=== PATIENT | female | born 1985 | race Caucasian/White ===

== ENCOUNTER 2019-05-17 21:31 | Emergency (ER) | payer OTHER ==
[2019-05-17] MEDS ORDERED: predniSONE 50 MG TAB PO STA (22:28)
[2019-05-17] MEDS ORDERED: IPRATROPIUM-ALBUTEROL 3 ML NEB INHALATION STA (22:28)
--- NOTE | 2019-05-17 22:34 | XR ---
EXAMINATION TYPE: XR chest 2V DATE OF EXAM: 05/17/2019 COMPARISON: NONE HISTORY: Hemoptysis TECHNIQUE: Frontal and lateral views of the chest are obtained. FINDINGS: There is some linear density at the right diaphragm. There is no heart failure. Heart size is normal. There is mild widening of the mediastinum. Costophrenic angles are clear. Bony thorax appears intact. IMPRESSION: There is some widening of the mediastinum. Mediastinal adenopathy is suspected. Follow-u p recommended. Minimal atelectasis right lung base.
[2019-05-17] MEDS ORDERED: ACETAMINOPHEN TAB 325 MG TAB PO STA (23:10)
[2019-05-17] MEDS ORDERED: IBUPROFEN 600 MG TAB PO STA (23:10)
[2019-05-17 23:14] LABS: Appearance,Urine Clear (Clear); Bilirubin,Urine Negative (Negative); Blood,Urine Large (Negative); Color,Urine Yellow; Glucose,Urine (UA) Negative (Negative); Ketones,Urine Negative (Negative); Leukocyte Esterase,Urine Small (Negative); Mucus,Urine Rare /hpf; Nitrite,Urine Negative (Negative); Protein,Urine Negative (Negative); RBC,Urine 119 /hpf (0-5); Specific Gravity,Urine 1.011 (1.001-1.035); Squamous Epithelial Cell,Urine 1 /hpf (0-4); Urobilinogen,Urine <2.0 mg/dL (<2.0); WBC,Urine 8 /hpf (0-5)
[2019-05-17] MEDS ORDERED: SODIUM CHLORIDE 0.9% 500 ML 500 ML IV STA (23:27)
[2019-05-18 00:10] LABS: Basophils # (A) 0.1 k/uL (0-0.2); Basophils % (A) 0 %; Eosinophils # (A) 0.2 k/uL (0-0.7); Eosinophils % (A) 1 %; HGB 13.3 gm/dL (11.4-16.0); Lymphocytes # (A) 2.4 k/uL (1.0-4.8); Lymphocytes % (A) 12 %; MCH 29.3 pg (25.0-35.0); MCHC 34.1 g/dL (31.0-37.0); Mean Platelet Volume 5.7; Monocytes % (A) 5 %; Neutrophils # (A) 15.2 k/uL (1.3-7.7); Neutrophils % (A) 79 %; Platelet Count 314 k/uL (150-450); RBC 4.53 m/uL (3.80-5.40); RDW 14.1 % (11.5-15.5); WBC 19.3 k/uL (3.8-10.6)
--- NOTE | 2019-05-18 00:15 | ED ---
General Adult HPI - General Chief complaint: Upper Respiratory Infection Stated complaint: Bloody Sputum Time Seen by Provider: 05/17/19 21:55 Source: patient, RN notes reviewed, old records reviewed Mode of arrival: ambulatory Limitations: no limitations - History of Present Illness Initial comments: 33-year-old female patient with the chief complaint of cough, hematemesis. Patient was that she has had persistent cough for approximately 2 weeks. Repor ts that she had asthma and feels that her asthma is worsening. Patient port sites that she was coughing, after which she threw up, which had streaks of bright red blood in it. Patient was seen in urgent care prior today and reportedly said the coughing of blood was one of the concerning symptoms for 2 to go to the emergency department. Patient is fully vaccinated. Denies any other complaints at this time. Systemic: Pt denies fatigue, fever/chills, rash. Pt denies weakness, night sweats, weight loss. Neuro: Pt denies headache, visual disturbances, syncope or pre-syncope. HEENT: Pt denies ocular discharge or irritation, otalgia, rhinorrhea, pharyngitis or notable lymphadenopathy. Cardiopulmonary: Pt denies heart palpitations, dyspnea on exertion. Abdominal/GI: Pt denies abdominal pain, n/v/d. : Pt denies dysuria, burning w/ urination, frequency/urgency. Denies new onset urinary or bowel incontinence. MSK: Pt denies myalgia, loss of strength or function in extremities. Neuro: Pt denies new onset weakness, paresthesias. - Related Data Previous Rx's Medication Instructions Recorded Albuterol Inhaler [Ventolin Hfa 1 - 2 puff INHALATION Q4-6H PRN #1 05/18/19 Inhaler] inhaler Albuterol Nebulized [Ventolin 2.5 mg INHALATION Q4H PRN 10 Days 05/18/19 Nebulized] nebu predniSONE 50 mg PO DAILY #4 tab 05/18/19 Allergies Allergy/AdvReac Type Severity Reaction Status Date / Time bee venom protein (honey bee) Allergy Anaphylaxis Verified 05/17/19 21:53 duloxetine [From Cymbalta] Allergy Unknown Verified 05/17/19 21:53 egg Allergy Nausea & Verified 05/17/19 21:53 Vomiting Fish Containing Products Allergy Nausea & Verified 05/17/19 21:53 [Fish] Vomiting mushroom Allergy Nausea & Verified 05/17/19 21:53 Vomiting paliperidone [From Invega] Allergy Unknown Verified 05/17/19 21:53 shellfish derived Allergy Anaphylaxis Verified 05/17/19 21:53 Review of Systems ROS Statement: Those systems with pertinent positive or pertinent negative responses have been documented in the HPI. ROS Other: All systems not noted in ROS Statement are negative. Past Medical History Past Medical History: Asthma, Diabetes Mellitus, Hypertension Additional Past Medical History / Comment(s): legally blind, neuropathy trouble walking History of Any Multi-Drug Resistant Organisms: None Reported Past Surgical History: Adenoidectomy, Ear Surgery Additional Past Surgical History / Comment(s): D and C Past Psychological History: Anxiety, Bipolar, Depression, PTSD Smoking Status: Never smoker Past Alcohol Use History: None Reported Past Drug Use History: None Reported General Exam - General Exam Comments Initial Comments: Constitutional: NAD, AOX3, Pt has pleasant affect. HEENT: NC/AT, trachea midline, neck supple, no lymphadenopathy. Posterior pharynx non erythematous, without exudates. External ears appear normal, without discharge. Mucous membranes moist. Eyes PERRLA, EOM intact. There is no scleral icterus. No pallor noted. Cardiopulmonary: RRR, no murmurs, rubs or gallops, no JVD noted. wheezing noted in anterior lung doyle, resolved after breathing treatment. No peripheral edema. Abdominal exam: Abdomen soft and non-distended. Abdomen non-tender to palpation in all 4 quadrants. Bowel sounds active in LLQ. No hepatosplenomegaly. No ecchymosis Neuro: CN II-XII grossly intact. No nuchal rigidity. No raccon eyes, no lazaro sign, no hemotympanum. No cervical spinal tenderness. MSK: No posterior calf tenderness bilaterally, homans sign negative bilaterally. Posterior tibialis and radial pulse +2 bilaterally. Sensation intact in upper and lower extremities. Full active ROM in upper and lower extremities, 5/5 stregnth. Limitations: no limitations Course Vital Signs 05/17/19 05/17/19 05/17/19 21:45 22:27 22:58 Temperature 100.1 F H 101.9 F H Pulse Rate 109 H 72 Respiratory 20 22 Rate Blood Pressure 118/64 O2 Sat by Pulse 96 Oximetry 05/17/19 05/18/19 23:22 00:41 Temperature 100.8 F H Pulse Rate 72 102 H Respiratory 18 Rate Blood Pressure 107/50 O2 Sat by Pulse 95 Oximetry Medical Decision Making - Medical Decision Making 33-year-old female patient from [place] complaining of cough, one episode of posttussive hematemesis. Pt has a his history of asthma. Patient's vital signs displayed mild tachycardia, mild fever. Pt administered antipyretic. Physical exam displayed diffuse wheezing in anterior lung doyle. Improved significantly after breathing treatment. After breathing treatment patient complaining of some transient, bilateral parasternal pain. Was reproducible upon palpation. Further investigations were performed including EKG which displayed sinus tachycardia at 120 bpm, likely secondary to beta 1 agonist albuterol. Lab oratory investigations revealed leukocytosis of 19.3. CMP non-impressive. Troponin negative. UA displayed 119 she is currently on some menses. Influenza is negative. Chest x-ray revealed widening mediastinum, mediastinal adenopathy is suspected, follow-up recommended. Patient chest pain resolved spontaneously. Patient likely experiencing bronchitis/asthma exacerbation. Patient will be discharged on oral steroids. Patient is a breathing treatment at home, refill was prescribed. Patient will discharge with close outpatient follow-up with primary care provider tomorrow. Case discussed with Dr. Godinez. - Lab Data Result diagrams: 05/18/19 00:06 05/18/19 00:06 Lab Results 05/17/19 05/17/19 05/18/19 Range/Units 22:40 22:50 00:06 WBC 19.3 H (3.8-10.6) k/uL RBC 4.53 (3.80-5.40) m/uL Hgb 13.3 (11.4-16.0) gm/dL Hct 39.0 (34.0-46.0) % MCV 86.0 (80.0-100.0) fL MCH 29.3 (25.0-35.0) pg MCHC 34.1 (31.0-37.0) g/dL RDW 14.1 (11.5-15.5) % Plt Count 314 (150-450) k/uL Neutrophils % 79 % Lymphocytes % 12 % Monocytes % 5 % Eosinophils % 1 % Basophils % 0 % Neutrophils # 15.2 H (1.3-7.7) k/uL Lymphocytes # 2.4 (1.0-4.8) k/uL Monocytes # 1.0 (0-1.0) k/uL Eosinophils # 0.2 (0-0.7) k/uL Basophils # 0.1 (0-0.2) k/uL Sodium (137-145) mmol/L Potassium (3.5-5.1) mmol/L Chloride (98-107) mmol/L Carbon Dioxide (22-30) mmol/L Anion Gap mmol/L BUN (7-17) mg/dL Creatinine (0.52-1.04) mg/dL Est GFR (CKD-EPI)AfAm (>60 ml/min/1.73 sqM) Est GFR (CKD-EPI)NonAf (>60 ml/min/1.73 sqM) Glucose (74-99) mg/dL Calcium (8.4-10.2) mg/dL Magnesium (1.6-2.3) mg/dL Total Bilirubin (0.2-1.3) mg/dL AST (14-36) U/L ALT (9-52) U/L Alkaline Phosphatase (38-126) U/L Troponin I (0.000-0.034) ng/mL Total Protein (6.3-8.2) g/dL Albumin (3.5-5.0) g/dL Urine Color Yellow Urine Appearance Clear (Clear) Urine pH 6.0 (5.0-8.0) Ur Specific [place] 1.011 (1.001-1.035) Urine Protein Negative (Negative) Urine Glucose (UA) Negative (Negative) Urine Ketones Negative (Negative) Urine Blood Large H (Negative) Urine Nitrite Negative (Negative) Urine Bilirubin Negative (Negative) Urine Urobilinogen <2.0 (<2.0) mg/dL Ur Leukocyte Esterase Small H (Negative) Urine RBC 119 H (0-5) /hpf Urine WBC 8 H (0-5) /hpf Ur Squamous Epith Cells 1 (0-4) /hpf Urine Mucus Rare H (None) /hpf Influenza Type A RNA Not Detected (Not Detectd) Influenza Type B (PCR) Not Detected (Not Detectd) 05/18/19 05/18/19 Range/Units 00:06 00:06 WBC (3.8-10.6) k/uL RBC (3.80-5.40) m/uL Hgb (11.4-16.0) gm/dL Hct (34.0-46.0) % MCV (80.0-100.0) fL MCH (25.0-35.0) pg MCHC (31.0-37.0) g/dL RDW (11.5-15.5) % Plt Count (150-450) k/uL Neutrophils % % Lymphocytes % % Monocytes % % Eosinophils % % Basophils % % Neutrophils # (1.3-7.7) k/uL Lymphocytes # (1.0-4.8) k/uL Monocytes # (0-1.0) k/uL Eosinophils # (0-0.7) k/uL Basophils # (0-0.2) k/uL Sodium 135 L (137-145) mmol/L Potassium 4.0 (3.5-5.1) mmol/L Chloride 100 (98-107) mmol/L Carbon Dioxide 27 (22-30) mmol/L Anion Gap 8 mmol/L BUN 8 (7-17) mg/dL Creatinine 0.72 (0.52-1.04) mg/dL Est GFR (CKD-EPI)AfAm >90 (>60 ml/min/1.73 sqM) Est GFR (CKD-EPI)NonAf >90 (>60 ml/min/1.73 sqM) Glucose 130 H (74-99) mg/dL Calcium 8.8 (8.4-10.2) mg/dL Magnesium 1.6 (1.6-2.3) mg/dL Total Bilirubin 0.5 (0.2-1.3) mg/dL AST 25 (14-36) U/L ALT 26 (9-52) U/L Alkaline Phosphatase 93 (38-126) U/L Troponin I <0.012 (0.000-0.034) ng/mL Total Protein 7.1 (6.3-8.2) g/dL Albumin 3.6 (3.5-5.0) g/dL Urine Color Urine Appearance (Clear) Urine pH (5.0-8.0) Ur Specific [place] (1.001-1.035) Urine Protein (Negative) Urine Glucose (UA) (Negative) Urine Ketones (Negative) Urine Blood (Negative) Urine Nitrite (Negative) Urine Bilirubin (Negative) Urine Urobilinogen (<2.0) mg/dL Ur Leukocyte Esterase (Negative) Urine RBC (0-5) /hpf Urine WBC (0-5) /hpf Ur Squamous Epith Cells (0-4) /hpf Urine Mucus (None) /hpf Influenza Type A RNA (Not Detectd) Influenza Type B (PCR) (Not Detectd) - EKG Data -: EKG Interpreted by Me (and Dr. Godinez) EKG Comments: Ventricular rate 120, PFO 142, QRS 84, QT/QTC 382/449. Chest tachycardia, otherwise normal EKG. No concern of acute ischemia. Heart rate likely increased secondary to breathing treatment. Disposition Clinical Impression: Bronchitis, Asthma exacerbation Disposition: HOME SELF-CARE Condition: Stable Instructions (If sedation given, give patient instructions): Bronchospasm (ED) Additional Instructions: Patient to adhere to previously discussed treatment plan and will take medication(s) as directed. Patient to follow up with PCP in 1-2 days. Patient to return to ED if symptoms do not improve. Take medications as directed. Follow-up with primary care provider tomorrow. Return to ER if condition worsens. Prescriptions: predniSONE 50 mg PO DAILY #4 tab Albuterol Inhaler [Ventolin Hfa Inhaler] 1 - 2 puff INHALATION Q4-6H PRN #1 inhaler PRN Reason: Cough Albuterol Nebulized [Ventolin Nebulized] 2.5 mg INHALATION Q4H PRN 10 Days nebu PRN Reason: Cough Is patient prescribed a controlled substance at d/c from ED?: No Referrals: [facility] [Primary Care Provider] - 1-2 days
[2019-05-18 00:27] LABS: ALT 26 U/L (9-52); AST 25 U/L (14-36); African American GFR (CKD) >90 (>60 ml/min/1.73 sqM); Albumin 3.6 g/dL (3.5-5.0); Alkaline Phosphatase 93 U/L (38-126); Anion Gap 8 mmol/L; Blood Urea Nitrogen 8 mg/dL (7-17); Calcium 8.8 mg/dL (8.4-10.2); Carbon Dioxide 27 mmol/L (22-30); Chloride 100 mmol/L (98-107); Glucose 130 mg/dL (74-99); Magnesium 1.6 mg/dL (1.6-2.3); Sodium 135 mmol/L (137-145); Total Bilirubin 0.5 mg/dL (0.2-1.3); Total Protein 7.1 g/dL (6.3-8.2)
[2019-05-18 00:43] VITALS: BP 107/50; PULSE 102; RESP 18; TEMP 100.8
== END 2019-05-18 01:36 | disposition home or self-care (01) ==
LOC: EC 21:31
DX: J45.901 Unspecified asthma with (acute) exacerbation (principal); R00.0 Tachycardia, unspecified; E11.40 Type 2 diabetes mellitus with diabetic neuropathy, unspecified; H54.7 Unspecified visual loss; Z91.030 Bee allergy status; Z88.8 Allergy status to other drugs, medicaments and biological substances; Z91.012 Allergy to eggs; Z91.013 Allergy to seafood; Z91.018 Allergy to other foods
CPT/HCPCS: 36415; 94640; 93005; 80053; 83735; 84484; 85025; 81001; 87502; 71046; 99284; 96360; J7512

== ENCOUNTER → 2019-07-13 | Outpatient (CLI) | payer OTHER ==
--- NOTE | 2019-07-13 13:02 | XR ---
EXAMINATION TYPE: XR lumbosacral spine min 4V DATE OF EXAM: 07/13/2019 COMPARISON: None HISTORY: Low back pain TECHNIQUE: Five-view lumbar spine FINDINGS: There are 6 lumbar-type vertebral bodies. Pedicles are intact. No spondylolytic defects are evident. There is straightening of the lumbar spine in the sagittal plane. Disc height and vertebral body heights are preserved. IMPRESSION: 1. 6 lumbar-type vertebral bodies. 2. Straightening of the lumbar spine. 3. No acute osseous abnormality evident.
--- NOTE | 2019-07-13 13:03 | XR ---
EXAMINATION TYPE: XR Hip Complete RT DATE OF EXAM: 07/13/2019 COMPARISON: None HISTORY: Right hip pain TECHNIQUE: 2 view right hip FINDINGS: Femoral head articulates with the acetabulum. No acute fractures are evident. Joint spaces preserved. Follow-up exams can be performed 7-10 days from acute trauma for continued pain. IMPRESSION: 1. Normal 2 view right hip
== END | disposition home or self-care (01) ==
LOC: RADXRMAIN 12:12
PROVIDERS: ATTEND Nurse Practitioner
DX: M54.5 Low back pain (principal); M25.551 Pain in right hip
CPT/HCPCS: 72110; 73502

== ENCOUNTER 2020-03-07 17:17 | Emergency (ER) | payer OTHER ==
[2020-03-07 18:25] VITALS: BP 148/89; PULSE 96; RESP 16; TEMP 98.3
[2020-03-07] MEDS ORDERED: ACETAMINOPHEN TAB 325 MG TAB PO STA (19:18)
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
--- NOTE | 2020-03-07 20:01 | XR ---
EXAMINATION TYPE: XR foot complete LT DATE OF EXAM: 03/07/2020 COMPARISON: NONE HISTORY: Foot pain TECHNIQUE: 3 views FINDINGS: Metatarsals are intact. There is Achilles calcaneal spurring. I see no fracture nor disloca tion. There are no erosions. There is soft tissue swelling of the forefoot. IMPRESSION: Mild soft tissue swelling. No fracture seen.
--- NOTE | 2020-03-07 20:04 | XR ---
EXAMINATION TYPE: XR tibia fibula LT DATE OF EXAM: 03/07/2020 COMPARISON: NONE HISTORY: Pain TECHNIQUE: 2 views FINDINGS: The tibia and fibula appear intact. There is spurring of the lateral femoral and tibial con dyles. I see no fracture nor dislocation. There is no sign of knee joint effusion. Ankle mortise is a natomic. 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 No fracture seen.
--- NOTE | 2020-03-07 20:05 | XR ---
EXAMINATION TYPE: XR ankle complete LT DATE OF EXAM: 03/07/2020 COMPARISON: NONE HISTORY: Pain TECHNIQUE: 3 views FINDINGS: Ankle mortise is anatomic. I see no fracture nor dislocation. Joint spaces are normal. Ther e is a small Achilles calcaneal spur. IMPRESSION: Mild calcaneal spurring. No fracture seen.
== END 2020-03-07 20:43 | disposition home or self-care (01) ==
LOC: EC 17:17
DX: M79.675 Pain in left toe(s) (principal); M79.672 Pain in left foot; Z91.030 Bee allergy status; Z91.012 Allergy to eggs; Z91.013 Allergy to seafood; Z88.8 Allergy status to other drugs, medicaments and biological substances; Z91.018 Allergy to other foods; V53.6XXA Passenger in pick-up truck or van injured in collision with car, pick-up truck or van in traffic accident, initial encounter; Y92.009 Unspecified place in unspecified non-institutional (private) residence as the place of occurrence of the external cause
CPT/HCPCS: 99284

== ENCOUNTER → 2020-03-21 | Outpatient (CLI) | payer OTHER ==
--- NOTE | 2020-03-21 14:24 | XR ---
EXAMINATION TYPE: XR chest 2V DATE OF EXAM: 03/21/2020 COMPARISON: 05/17/2019 HISTORY: Chest pain TECHNIQUE: Frontal and lateral views of the chest are obtained. FINDINGS: There is no focal air space opacity. No evidence for pneumothorax. No pleural effusion. The cardiac silhouette size is within normal limits. The osseous structures are grossly intact. IMPRESSION: 1. No acute cardiopulmonary process.
--- NOTE | 2020-03-21 14:25 | XR ---
EXAMINATION TYPE: XR foot complete LT DATE OF EXAM: 03/21/2020 CLINICAL HISTORY: pain TECHNIQUE: Frontal, lateral and oblique images of the left foot are obtained. COMPARISON: None. FINDINGS: There is no acute fracture/dislocation evident. The joint spaces appear within normal jefferson its. The overlying soft tissue appears unremarkable. IMPRESSION: There is no acute fracture or dislocation. ICD 10 NO FRACTURE, INITIAL EVALUATION
== END | disposition home or self-care (01) ==
LOC: RADXRMAIN 13:40
PROVIDERS: ATTEND Nurse Practitioner
DX: R07.82 Intercostal pain (principal); M79.672 Pain in left foot
CPT/HCPCS: 71046

== ENCOUNTER 2020-11-23 20:31 | Emergency (ER) | payer OTHER ==
--- NOTE | 2020-11-23 21:12 | ED ---
General Adult HPI - General Chief complaint: Fever Stated complaint: Fever,Cough Time Seen by Provider: 11/23/20 20:44 Source: patient Mode of arrival: wheelchair Limitations: no limitations - History of Present Illness Initial comments: 35 year-old female patient comes in with reports of cough, congestion, fevers for the last 5 days. State she has been taking motrin for fever control. Denies using other medications. Reports history of asthma and seasonal allergies. States she is having persistent cough with some shortness of breath. Denies nausea or vomiting. Denies any significant rash. Patient denies any recent cough, chest pain, abdominal pain, diarrhea, constipation, back pain, numbness, tingling, dizziness, weakness, hematuria, dysuria, urinary urgency, urinary frequency, headache, visual changes, or any other complaints. - Related Data Previous Rx's Medication Instructions Recorded Albuterol Inhaler (Mhu) [Ventolin 1 - 2 puff INHALATION Q4-6H PRN #1 05/18/19 Hfa Inhaler (Mhu)] inhaler Albuterol Nebulized [Ventolin 2.5 mg INHALATION Q4H PRN 10 Days 05/18/19 Nebulized] nebu predniSONE 50 mg PO DAILY #4 tab 05/18/19 Cephalexin [Keflex] 500 mg PO Q6H #28 cap 11/24/20 predniSONE 50 mg PO DAILY #5 tablet 11/24/20 Allergies Allergy/AdvReac Type Severity Reaction Status Date / Time bee venom protein (honey bee) Allergy Anaphylaxis Verified 11/23/20 20:42 duloxetine [From Cymbalta] Allergy Unknown Verified 11/23/20 20:42 egg Allergy Nausea & Verified 11/23/20 20:42 Vomiting Fish Containing Products Allergy Nausea & Verified 11/23/20 20:42 [Fish] Vomiting mushroom Allergy Nausea & Verified 11/23/20 20:42 Vomiting paliperidone [From Invega] Allergy Unknown Verified 11/23/20 20:42 shellfish derived Allergy Anaphylaxis Verified 11/23/20 20:42 Review of Systems ROS Statement: Those systems with pertinent positive or pertinent negative responses have been documented in the HPI. ROS Other: All systems not noted in ROS Statement are negative. Past Medical History Past Medical History: Asthma, Diabetes Mellitus, Hypertension Additional Past Medical History / Comment(s): legally blind, neuropathy trouble walking History of Any Multi-Drug Resistant Organisms: None Reported Past Surgical History: Adenoidectomy, Ear Surgery Additional Past Surgical History / Comment(s): D and C Past Psychological History: Anxiety, Bipolar, Depression, PTSD Smoking Status: Never smoker Past Alcohol Use History: None Reported Past Drug Use History: None Reported General Exam Limitations: no limitations General appearance: alert, in no apparent distress, other (Physical well- developed, well-nourished adult female patient in no acute distress. Vital signs upon presentation are temperature 97.8F, pulse 98, respirations 20, blood pressure 162/83, pulse ox 97% on room air.) Eye exam: Present: normal appearance, PERRL, EOMI. Absent: scleral icterus, conjunctival injection, periorbital swelling ENT exam: Present: normal exam, normal oropharynx, mucous membranes moist Respiratory exam: Present: normal lung sounds bilaterally. Absent: respiratory distress, wheezes, rales, rhonchi, stridor Cardiovascular Exam: Present: regular rate, normal rhythm, normal heart sounds. Absent: systolic murmur, diastolic murmur, rubs, gallop, clicks GI/Abdominal exam: Present: soft, normal bowel sounds. Absent: distended, tenderness, guarding, rebound, rigid Neurological exam: Present: alert, oriented X3, CN II-XII intact Psychiatric exam: Present: normal affect, normal mood Skin exam: Present: warm, dry, intact, normal color. Absent: rash Course Vital Signs 11/23/20 11/23/20 11/23/20 20:40 21:16 23:35 Temperature 97.8 F 97.0 F L Pulse Rate 98 102 H 92 Respiratory 20 22 Rate Blood Pressure 162/83 92/79 O2 Sat by Pulse 97 99 Oximetry 11/23/20 11/24/20 23:44 00:57 Temperature Pulse Rate 96 94 Respiratory 16 Rate Blood Pressure 125/61 O2 Sat by Pulse 98 Oximetry Medical Decision Making - Medical Decision Making 35-year-old female patient presented to the emergency department today for evaluation of cough, congestion, fever. Physical examination revealed critical lung sounds. She has normal oxygen saturation. Tested negative for chlamydia. Chest x-ray showed pleural thickening on the right. Chest xray was repeated, appears similar to previous exam. Urinalysis showed possible mild infection She will be started on keflex. We will given prednisone for bronchitis/asthma exacerbation. She is instructed to follow-up with her primary care physician for recheck in 1-2 days. Return parameters discussed in detail. She verbalizes understanding and agrees with this plan. Case discussed with my attending Dr. Laird. - Lab Data Lab Results 11/23/20 11/23/20 Range/Units 21:21 23:22 Urine Color Yellow Urine Appearance Cloudy H (Clear) Urine pH 6.5 (5.0-8.0) Ur Specific [place] 1.017 (1.001-1.035) Urine Protein Trace H (Negative) Urine Glucose (UA) Negative (Negative) Urine Ketones Negative (Negative) Urine Blood Large H (Negative) Urine Nitrite Negative (Negative) Urine Bilirubin Negative (Negative) Urine Urobilinogen <2.0 (<2.0) mg/dL Ur Leukocyte Esterase Moderate H (Negative) Urine RBC 7 H (0-5) /hpf Urine WBC 33 H (0-5) /hpf Ur Squamous Epith Cells 5 H (0-4) /hpf Urine Bacteria Rare H (None) /hpf Urine Mucus Rare H (None) /hpf Influenza Type A (PCR) Not Detected (Not Detectd) Influenza Type B (PCR) Not Detected (Not Detectd) RSV (PCR) Not Detected (Not Detectd) SARS-CoV-2 (PCR) Not Detected (Not Detectd) - Radiology Data Radiology results: report reviewed, image reviewed Disposition Clinical Impression: Upper respiratory infection, UTI (urinary tract infection) Disposition: HOME SELF-CARE Condition: Good Instructions (If sedation given, give patient instructions): Urinary Tract Infection in Women (ED), Fever in Adults (ED) Additional Instructions: Take medications as directed. Follow-up with the primary care physician for recheck in 1-2 days. Return for any new, worsening, or concerning symptoms Prescriptions: Cephalexin [Keflex] 500 mg PO Q6H #28 cap predniSONE 50 mg PO DAILY #5 tablet Is patient prescribed a controlled substance at d/c from ED?: No Referrals: [facility] [Primary Care Provider] - 1-2 days Time of Disposition: 01:16
[2020-11-23 21:20] VITALS: TEMP 97
[2020-11-23] MEDS ORDERED: IPRATROPIUM-ALBUTEROL 3 ML NEB INHALATION STA (22:39)
[2020-11-23] MEDS ORDERED: predniSONE 50 MG TAB PO STA (22:39)
--- NOTE | 2020-11-23 22:41 | XR ---
EXAMINATION TYPE: XR chest 1V DATE OF EXAM: 11/23/2020 COMPARISON: 03/21/2020 HISTORY: Cough and fever TECHNIQUE: FINDINGS: Heart and mediastinum are normal. Lungs are clear of consolidation. There is some increased density over the right lateral lung field that is somewhat linear and could relate to pleural thicke alaina.. There is no heart failure. There are no hilar masses. Exam limited by patient's size. There is no pleural effusion. IMPRESSION: Possible right side pleural thickening or unusual infiltrate. This appears new compared t o old exam. Normal heart.
[2020-11-23 23:42] LABS: Appearance,Urine Cloudy (Clear); Bacteria,Urine Rare /hpf; Bilirubin,Urine Negative (Negative); Blood,Urine Large (Negative); Color,Urine Yellow; Glucose,Urine (UA) Negative (Negative); Ketones,Urine Negative (Negative); Leukocyte Esterase,Urine Moderate (Negative); Mucus,Urine Rare /hpf; Nitrite,Urine Negative (Negative); PH, Urine 6.5 (5.0-8.0); Protein,Urine Trace (Negative); RBC,Urine 7 /hpf (0-5); Specific Gravity,Urine 1.017 (1.001-1.035); Squamous Epithelial Cell,Urine 5 /hpf (0-4); Urobilinogen,Urine <2.0 mg/dL (<2.0); WBC,Urine 33 /hpf (0-5)
--- NOTE | 2020-11-24 00:46 | XR ---
EXAM: XR Chest, 2 Views CLINICAL HISTORY: ITS.REASON XR Reason: abnormal xray TECHNIQUE: Frontal and lateral views of the chest. COMPARISON: 11/24/19. FINDINGS: No significant interval change in appearance of the lungs. Stable cardiomediastinal silhouette. Osseous structures similar to prior. IMPRESSION: No significant interval change. CT can further evaluate if there is persistent concern.
[2020-11-24 00:57] VITALS: BP 125/61; PULSE 94; RESP 16
== END 2020-11-24 01:19 | disposition home or self-care (01) ==
LOC: EC 20:31
DX: J06.9 Acute upper respiratory infection, unspecified (principal); N39.0 Urinary tract infection, site not specified; I10 Essential (primary) hypertension; J45.909 Unspecified asthma, uncomplicated; E11.40 Type 2 diabetes mellitus with diabetic neuropathy, unspecified; H54.8 Legal blindness, as defined in USA; Z88.8 Allergy status to other drugs, medicaments and biological substances
CPT/HCPCS: 94640; 81001; 87086; 87636; 71045; 71046; 99283; J7512

== ENCOUNTER 2020-11-25 22:59 | Emergency (ER) | payer OTHER ==
[2020-11-25 23:07] VITALS: TEMP 97.9
--- NOTE | 2020-11-25 23:56 | XR ---
EXAMINATION TYPE: XR chest 2V DATE OF EXAM: 11/25/2020 COMPARISON: Yesterday HISTORY: Cough TECHNIQUE: 2 views FINDINGS: Heart and mediastinum are normal. Lungs are clear of consolidation. There are no hilar mass es. Costophrenic angles are clear. IMPRESSION: No definite acute lung disease. There is some poorly marginated linear density over the r ight lower lobe that could be some focal atelectasis unchanged compared to yesterday.
--- NOTE | 2020-11-26 00:36 | ED ---
SOB HPI - General Chief Complaint: Shortness of Breath Stated Complaint: SOB, Covid+ Time Seen by Provider: 11/25/20 23:03 Source: patient, EMS Mode of arrival: ambulatory Limitations: no limitations - History of Present Illness MD Complaint: shortness of breath, cough -: days(s) Severity: mild Quality: aching Consistency: constant Improves With: nothing Worsens With: nothing Associated Symptoms: denies other symptoms - Related Data Home Medications Medication Instructions Recorded Confirmed ARIPiprazole [Abilify] 10 mg PO HS@209911/25/20 11/25/20 Albuterol Nebulized [Ventolin 2.5 mg INHALATION RT-Q4H PRN 11/25/20 11/25/20 Nebulized] Albuterol Sulfate [Ventolin HFA] 1 - 2 puff INHALATION RT-Q4H PRN 11/25/20 11/25/20 Cholecalciferol (Vitamin D3) 125 mcg PO DAILY@89911/25/20 11/25/20 [Vitamin D3 (5000 Iu)] EPINEPHrine (Auto Inject) [Epipen] 0.3 mg IM ONCE PRN 11/25/20 11/25/20 Escitalopram [Lexapro] 20 mg PO HS@209911/25/20 11/25/20 Ferrous Sulfate [Feosol] 325 mg PO DAILY@89911/25/20 11/25/20 Fluticasone Nasal [place] [Flonase 1 spray EA NOSTRIL DAILY PRN 11/25/20 11/25/20 Nasal [place]] Fluticasone Propionate [Flovent 1 puff INHALATION RT-BID 11/25/20 11/25/20 Hfa 220 mcg] Gabapentin 600 mg PO TID@0900,1200,209911/25/20 11/25/20 Ibuprofen [Motrin] 600 mg PO BID PRN 11/25/20 11/25/20 Loratadine [Claritin] 10 mg PO DAILY@89911/25/20 11/25/20 Metamucil Fiber 0.52gm 2 cap PO DAILY@89911/25/20 11/25/20 Metoprolol Tartrate [Lopressor] 25 mg PO DAILY@89911/25/20 11/25/20 Montelukast Sodium [Singulair] 10 mg PO HS@209911/25/20 11/25/20 hydroCHLOROthiazide 25 mg PO DAILY@0900 11/25/20 11/25/20 lisinopriL 10 mg PO DAILY@0900 11/25/20 11/25/20 metFORMIN HCL [Glucophage] 500 mg PO BID-W/MEALS 11/25/20 11/25/20 traZODone HCL [Desyrel] 150 mg PO HS@2100 11/25/20 11/25/20 Previous Rx's Medication Instructions Recorded Cephalexin [Keflex] 500 mg PO Q6H #28 cap 11/24/20 predniSONE 50 mg PO DAILY #5 tablet 11/24/20 Allergies Allergy/AdvReac Type Severity Reaction Status Date / Time bee venom protein (honey bee) Allergy Anaphylaxis Verified 11/25/20 23:28 duloxetine [From Cymbalta] Allergy Unknown Verified 11/25/20 23:28 egg Allergy Nausea & Verified 11/25/20 23:28 Vomiting Fish Containing Products Allergy Nausea & Verified 11/25/20 23:28 [Fish] Vomiting mushroom Allergy Nausea & Verified 11/25/20 23:28 Vomiting paliperidone [From Invega] Allergy Unknown Verified 11/25/20 23:28 shellfish derived Allergy Anaphylaxis Verified 11/25/20 23:28 Review of Systems ROS Statement: Those systems with pertinent positive or pertinent negative responses have been documented in the HPI. ROS Other: All systems not noted in ROS Statement are negative. Constitutional: Denies: fever, chills, weakness Respiratory: Reports: cough, dyspnea Cardiovascular: Denies: chest pain, palpitations, orthopnea, edema, syncope Gastrointestinal: Denies: abdominal pain, vomiting, diarrhea Genitourinary: Denies: dysuria, hematuria Musculoskeletal: Reports: back pain Skin: Denies: rash Neurological: Denies: headache, weakness, numbness Past Medical History Past Medical History: Asthma, Diabetes Mellitus, Hypertension Additional Past Medical History / Comment(s): legally blind, neuropathy trouble walking History of Any Multi-Drug Resistant Organisms: None Reported Past Surgical History: Adenoidectomy, Ear Surgery Additional Past Surgical History / Comment(s): D and C Past Psychological History: Anxiety, Bipolar, Depression, PTSD Smoking Status: Never smoker Past Alcohol Use History: None Reported Past Drug Use History: None Reported General Exam Limitations: no limitations General appearance: alert, in no apparent distress, obese Head exam: Present: atraumatic, normocephalic Neck exam: Present: normal inspection, full ROM Respiratory exam: Present: normal lung sounds bilaterally. Absent: respiratory distress, wheezes, rales, rhonchi, stridor Cardiovascular Exam: Present: regular rate, normal rhythm, normal heart sounds. Absent: systolic murmur, diastolic murmur, rubs, gallop GI/Abdominal exam: Present: soft. Absent: distended, tenderness, guarding Extremities exam: Present: normal inspection, normal capillary refill. Absent: pedal edema, calf tenderness Back exam: Present: normal inspection. Absent: CVA tenderness (R), CVA tenderness (L) Neurological exam: Present: alert Skin exam: Present: warm, dry, intact, normal color. Absent: rash Course Vital Signs 11/25/20 11/25/20 11/26/20 23:02 23:09 00:43 Temperature 97.9 F Pulse Rate 76 93 Respiratory 24 24 16 Rate Blood Pressure 164/87 153/86 O2 Sat by Pulse 100 99 Oximetry Medical Decision Making - Lab Data Lab Results 11/25/20 Range/Units 23:29 Influenza Type A (PCR) Not Detected (Not Detectd) Influenza Type B (PCR) Not Detected (Not Detectd) RSV (PCR) Not Detected (Not Detectd) SARS-CoV-2 (PCR) Not Detected (Not Detectd) Disposition Clinical Impression: Upper respiratory infection Disposition: HOME SELF-CARE Condition: Good Instructions (If sedation given, give patient instructions): Acute Bronchitis (ED) Is patient prescribed a controlled substance at d/c from ED?: No Referrals: [facility] [Primary Care Provider] - 1-2 days
[2020-11-26 00:43] VITALS: BP 153/86; PULSE 93; RESP 16
== END 2020-11-26 01:04 | disposition home or self-care (01) ==
LOC: EC 22:59
DX: J06.9 Acute upper respiratory infection, unspecified (principal); M54.9 Dorsalgia, unspecified; E11.40 Type 2 diabetes mellitus with diabetic neuropathy, unspecified; J45.909 Unspecified asthma, uncomplicated; I10 Essential (primary) hypertension; F41.9 Anxiety disorder, unspecified; F32.9 Major depressive disorder, single episode, unspecified; Z20.822 Contact with and (suspected) exposure to COVID-19; Z79.84 Long term (current) use of oral hypoglycemic drugs; Z79.51 Long term (current) use of inhaled steroids; Z79.899 Other long term (current) drug therapy
CPT/HCPCS: 71046; 87636; 99285